=== PATIENT | female | born 1985 | race Two or more races ===

== ENCOUNTER 2019-03-12 04:41 | Emergency (ER) | payer MEDICAID, OTHER ==
[~2019-03-12] VITALS: Ht 172.7 cm; Wt 62.2 kg
[2019-03-12] MEDS ORDERED: IBUPROFEN 600 MG TABLET PO ONE (05:30)
[2019-03-12] MEDS ORDERED: IBUPROFEN 600 MG TABLET ONE (05:34)
[2019-03-12 05:52] LABS: RAPID INFLUENZA A Negative (Negative); RAPID INFLUENZA B Negative (Negative)
[2019-03-12 06:41] VITALS: BP 111/81
== END 2019-03-12 07:00 | disposition home or self-care (01) ==
LOC: ED 05:40
DX: J02.8 Acute pharyngitis due to other specified organisms (principal); B34.9 Viral infection, unspecified; M79.10 Myalgia, unspecified site
CPT/HCPCS: 87081; 87400; 87880; 99283